=== PATIENT | female | born 1995 | race American Indian/Alaskan Native ===

== ENCOUNTER 2017-04-27 18:54 | Emergency (ER) | payer SELFPAY ==
[2017-04-27] MEDS ORDERED: TYLENOL ONE (20:04)
--- NOTE | 2017-04-27 22:14 | Emergency Department Report ---
HPI - General Chief Complaint: Upper Respiratory Infection Time Seen by Provider: 04/27/17 20:51 - HPI HPI: 21-year-old female presents today complaining of fever, vomiting, headache, diarrhea, body aches times one day. Child [id number] cold and sinus as well as Advil without any relief. Denies chest pain, shortness of breath, abdominal pain. Patient admits that her doctor has been sick for the past 2 days. ED Past Medical Hx - Past Medical History Hx Asthma: Yes - Surgical History Additional Surgical History: - Social History Smoking Status: Never Smoker Substance Use Type: None - Medications Home Medications: Home Medications Medication Instructions Recorded Confirmed Last Taken Type Brompheniramine/Pseudoephed/Dm 10 ml PO Q4H 5 Days syrup 04/27/17 Unknown Rx [Bromfed Dm Cough Syrup] Ondansetron [Zofran Odt] 4 mg PO TID PRN #15 tab.rapdis 04/27/17 Unknown Rx Oseltamivir [Tamiflu] 75 mg PO BID #10 cap 04/27/17 Unknown Rx ED Review of Systems ROS: Stated complaint: FEVER/VOMITING Other details as noted in HPI Constitutional: fever, malaise. denies: chills Eyes: denies: eye pain ENT: denies: ear pain, throat pain, congestion Respiratory: cough. denies: shortness of breath, wheezing Cardiovascular: denies: chest pain, palpitations Endocrine: no symptoms reported Gastrointestinal: nausea, vomiting, diarrhea. denies: abdominal pain Skin: denies: rash, lesions Neurological: headache. denies: weakness Physical Exam - Physical Exam Vital Signs: Vital Signs 04/27/17 20:08 Temperature 100.7 F H Pulse Rate 106 H Respiratory 20 Rate Blood Pressure 106/73 O2 Sat by Pulse 98 Oximetry Physical Exam: GENERAL: The patient is well-developed and well-nourished. Patient is in NAD. HEAD: Normocephalic. Atraumatic. EYES: Extraocular motions are intact, PERRL. EARS: External auditory canals and tympanic membranes clear; hearing grossly intact. NOSE: Normal nasal mucosa with no nasal discharge. THROAT: No erythema, swelling or exudates. Clear postnasal drip noted. NECK: Supple, nontender, without lymphadenopathy. No meningitic signs are noted. CHEST/LUNGS: Clear to auscultation throughout. HEART/CARDIOVASCULAR: Regular rate and rhythm. No murmurs, rubs or gallops. ABDOMEN: Abdomen is soft, nontender. Bowel sounds normoactive. No guarding or rebound tenderness. EXTREMITIES: Peripheral pulses intact. Capillary refill less than 2 seconds. NEURO: Alert and oriented x 3. Normal gait. ED Course Vital Signs 04/27/17 20:08 Temperature 100.7 F H Pulse Rate 106 H Respiratory 20 Rate Blood Pressure 106/73 O2 Sat by Pulse 98 Oximetry ED Medical Decision Making - Medical Decision Making 21-year-old female presents today complaining of fever, vomiting, headaches, body aches and diarrhea 1 day. Patient has been given a clinical diagnosis of influenza.Patient is in no acute distress at this time. She will be discharged home and is encouraged to follow up with a primary care provider. She is advised to alternate Tylenol and Motrin for fever and pain. She will be sent home on Tamiflu, Bromfed, Zofran and is encouraged to return to the emergency room for any worsening symptoms. Critical care attestation.: If time is entered above; I have spent that time in minutes in the direct care of this critically ill patient, excluding procedure time. ED Disposition Clinical Impression: Influenza Disposition: DC-01 TO HOME OR SELFCARE Is pt being admited?: No Does the pt Need Aspirin: No Condition: Stable Instructions: Influenza (ED) Additional Instructions: Alternate Tylenol and Motrin for fever and pain. Follow-up with primary care provider. Return to the emergency department if symptoms worsen. Prescriptions: Brompheniramine/Pseudoephed/Dm [Bromfed Dm Cough Syrup] 10 ml PO Q4H 5 Days syrup Ondansetron [Zofran Odt] 4 mg PO TID PRN #15 tab.rapdis PRN Reason: Nausea Oseltamivir [Tamiflu] 75 mg PO BID #10 cap Referrals: RIVERA BURNS MD [Primary Care Provider] - 3-5 Days Forms: Work/School Release Form(ED) Time of Disposition: 22:46
[2017-04-27 23:30] VITALS: BP 101/53
== END 2017-04-27 23:27 | disposition home or self-care (01) ==
LOC: ED 18:54
DX: J11.1 Influenza due to unidentified influenza virus with other respiratory manifestations (principal)
CPT/HCPCS: 87400; 99282